=== PATIENT | male | born 1960 | race Caucasian/White ===

== ENCOUNTER 2019-05-03 10:51 | Emergency (ER) | payer SELFPAY ==
[2019-05-03] MEDS ORDERED: SODIUM CHLORIDE 0.9% 1000ML 1,000 ML IVS ONE (11:11)
[2019-05-03] MEDS ORDERED: SODIUM CHLORIDE 0.9% (FLUSH) 10 ML SYG IV PRN (11:11)
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
[2019-05-03] MEDS ORDERED: CEFEPIME 2 GM in SODIUM CHL 0.9% 50ML MIN-BAG+ 50 ML IVPB ONE (13:51)
[2019-05-03] MEDS ORDERED: VANCOMYCIN HCL INJ 1,000 MG in SODIUM CHLORIDE 0.9% 250ML 250 ML IVPB ONE (13:51)
[2019-05-03] MEDS ORDERED: CEFEPIME 2 GM VIAL ONE (13:53)
[2019-05-03] MEDS ORDERED: SODIUM CHLORIDE 0.9% 250ML 250 ML ONE (13:54)
[2019-05-03] MEDS ORDERED: SODIUM CHL 0.9% 50ML MIN-BAG+ 50 ML IVPB ONE (13:54)
[2019-05-03] MEDS ORDERED: VANCOMYCIN HCL INJ 1,000 MG VIAL IVPB ONE (13:54)
[2019-05-03 14:10] VITALS: BP 110/74; TEMP 98.3; O2SAT 99
== END 2019-05-03 14:15 | disposition short-term general hospital (02) ==
LOC: ER 10:51
DX: J96.90 Respiratory failure, unspecified, unspecified whether with hypoxia or hypercapnia (principal); J18.9 Pneumonia, unspecified organism; L89.159 Pressure ulcer of sacral region, unspecified stage; G82.50 Quadriplegia, unspecified; Z99.11 Dependence on respirator [ventilator] status; Z79.899 Other long term (current) drug therapy; Z88.8 Allergy status to other drugs, medicaments and biological substances
CPT/HCPCS: 36415; 36600; 71045; 80053; 81001; 82550; 82553; 82803; 82805; 83605; 84484; 85025; 85610; 85730; 87040; 93005; 94002; 94760; 94770; J0692; J3370; J7050

== ENCOUNTER 2019-06-04 12:53 | Emergency (ER) | payer SELFPAY ==
[2019-06-04] MEDS ORDERED: IPRATROPIUM/ALBUTEROL 3 ML VIAL NEB ONE (13:03)
[2019-06-04] MEDS ORDERED: ACETYLCYSTEIN 20 % 6,000 MG/30 ML VIAL ONE (13:04)
[2019-06-04] MEDS ORDERED: ACETYLCYSTEIN 20 % 6,000 MG/30 ML VIAL NEB ONE (13:06)
[2019-06-04] MEDS: IPRATROPIUM/ALBUTEROL 3 ML VIAL NEB ONE (13:10)
[2019-06-04] MEDS ORDERED: levoFLOXacin 500MG IV 100 ML IVPB ONE (13:42)
--- NOTE | 2019-06-04 13:46 | RAD ---
EXAM: Abdomen Series CLINICAL INDICATION: Shortness of breath COMPARISON: There is no previous study for comparison. FINDINGS: A single view of the chest reveals the heart size is mildly enlarged. A tracheostomy is noted. The pulmonary vessels are moderately congested. Multifocal infiltrates are seen in the bilateral lung bases right greater than left. There is a right-sided PICC line with its tip in the SVC. There is no evidence of free air under the hemidiaphragms. 2views of the abdomen were obtained. There is a nonspecific bowel gas pattern with no radiographic evidence of bowel obstruction. There are no dilated loops of small bowel. There is no evidence of pneumoperitoneum or pathologic calcifications. A G-tube is noted. IMPRESSION: No evidence of an acute intraabdominal process. Extensive pulmonary infiltrates suggesting pneumonia as well as findings suggesting CHF. 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
[2019-06-04] MEDS: levoFLOXacin 500MG IV 500 MG in PREMIX BAG 1 BAG IVPB ONE (13:58)
[2019-06-04] MEDS: methylPREDNISolone SODIUM SUC 125 MG/2 ML VIAL IV ONE (14:42)
[2019-06-04] MEDS ORDERED: VANCOMYCIN HCL INJ 1,000 MG VIAL IVPB ONE (15:10)
[2019-06-04] MEDS ORDERED: SODIUM CHLORIDE 0.9% 250ML 250 ML ONE (15:11)
[2019-06-04] MEDS ORDERED: VANCOMYCIN HCL INJ 500 MG VIAL ONE (15:11)
[2019-06-04] MEDS: SODIUM CHLORIDE 0.9% 1000ML 1,000 ML IVS ONE ×2 (15:15→16:55)
[2019-06-04] MEDS: VANCOMYCIN HCL INJ 1,000 MG, VANCOMYCIN HCL INJ 500 MG in SODIUM CHLORIDE 0.9% 250ML 25... IVPB ONE (15:17)
[2019-06-04] MEDS ORDERED: ENOXAPARIN SODIUM 80 MG/0.8 ML SYG SUBCU ONE (15:53)
--- NOTE | 2019-06-04 16:13 | ED.PDOC ---
History of Present Illness - General Chief Complaint: Respiratory Problem Stated Complaint: resp distress Time Seen by Provider: 06/04/19 12:54 Source: patient Exam Limitations: no limitations - History of Present Illness Initial Comments: the patient is a 59-year-old male presenting to the emergency room secondary to developing acute onset shortness of breath this morning. The patient is ventilator dependent from a cervical spine fracture and subdural hematoma. He is on DVT prophylaxis with Lovenox already. The patient was diaphoretic upon arrival. He was also hypoxic. The patient has coarse breath sounds bilaterally. He is a quadriplegic. The patient had apparently only been at the long-term care facility for about a day when he developed this issue. He had been at [facility] for pneumonia for the month prior. Distress did improve with increasing the FiO2 as well as with a DuoNeb treatment and Mucomyst treatment. Initial end-tidal readings are in the mid 60s. Timing/Duration: 1 hour Severity: severe Improving Factors: nothing Worsening Factors: nothing Allergies/Adverse Reactions: Allergies Lactase Allergy (Verified 05/03/19 11:14) Home Medications: Ambulatory Orders Acetaminophen [Tylenol] 650 mg PO Q6H PRN 05/03/19 Ascorbic Acid [Vitamin C 500 mg] 1 tab PO DAILY 05/03/19 Enoxaparin Sodium [Lovenox] 40 mg SUBCU QD 05/03/19 Fluoxetine HCl 20 mg PEG DAILY 05/03/19 Gabapentin 600 mg PEG TID 05/03/19 Hydroxyzine HCl 50 mg PO Q8H PRN 05/03/19 Hypromellose Ophth [place] [Isopto Tears] 1 drop BOTH_EYES Q4H PRN 05/03/19 Lidocaine 5% Patch [Lidoderm Patch] 1 ea TOP DAILY 05/03/19 Loperamide Cap [Imodium Cap] 2 mg PEG PRN 05/03/19 Methocarbamol 500 mg PEG Q8H PRN 05/03/19 Multiple Vitamins W/ Minerals [Multi Vitamin and Mineral] 1 tab PEG DAILY 05/03/19 QUEtiapine FUMARATE [SEROquel] 150 mg PEG BEDTIME 05/03/19 Quetiapine Fumarate 50 mg PEG BID PRN 05/03/19 Zinc Sulfate 220 mg PEG DAILY 05/03/19 cefTRIAXone SODIUM [Rocephin] 2 gm IV Q24HR 05/03/19 Review of Systems - Review of Systems Review of Systems: 06/04/19 16:13 review of systems is difficult secondary to the patient having difficulty with communications. He does seem confused at times as well. Constitutional: States: diaphoresis, malaise EENTM: States: no symptoms reported Respiratory: States: short of breath Cardiology: States: no symptoms reported Gastrointestinal/Abdominal: States: no symptoms reported Genitourinary: States: no symptoms reported Musculoskeletal: States: no symptoms reported Skin: States: no symptoms reported Neurological: States: see HPI Endocrine: States: excessive sweating All other Systems: No Change from Baseline Past Medical History (General) - Patient Medical History Hx Stroke: No Hx Cardiac Disorders: No Hx Congestive Heart Failure: No Hx Diabetes: No - Vaccination History Hx Influenza Vaccination: - unknown Hx Pneumococcal Vaccination: - unknown - Activities of Daily Living Care Home/Assisted Living (if applicable):: [facility] Family Medical History - Family History Father Family History: Unknown Living Status: Unknown Physical Exam - Physical Exam General Appearance: Alert, Obvious distress, Ill Appearing Eye Exam: bilateral normal Ears, Nose, Throat: hearing grossly normal, normal pharynx Neck: non-tender, supple, other - tracheostomy is in place. Respiratory: respiratory distress, accessory muscle use, rales, rhonchi, wheezing Cardiovascular/Chest: normal peripheral pulses, regular rate, rhythm, no edema Peripheral Pulses: radial,right: 2+, radial,left: 2+, dorsalis pedis,right: 2+, dorsalis pedis,left: 2+ Gastrointestinal/Abdominal: non tender, soft, other - surgical sites noted. Rectal Exam: deferred Extremity: non-tender, no pedal edema, no calf tenderness, normal capillary refill, other - normal passive range of motion. 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 He is ventilator dependent. He does have recurrent bilateral pneumonia with what appears to be early sepsis. He does have some borderline hypotension and is being given a liter of IV fluids as well as Solu-Medrol. White blood cell count was elevated to 27,000. He was already on Rocephin 2 g daily and is being given a dose of vancomycin and Levaquin here. He also received a DuoNeb and Mucomyst treatment here. Additionally the patient appears to have been in a significant respiratory acidosis at his current settings. PH was 7.28 and PaCO2 was 93, and bicarbonate was approximately 40. Initial end tidals were in the mid 60s. ventilator settings have been adjusted and end tidals are coming down to the high 30s. He is resting much more comfortably at this time. he does have a borderline initial troponin. This will need to be repeated at some point. EKG is reassuring, he does have mild J-point elevation in anterior leads. I see no worsening of this on repeat EKG. He does also have an elevated d-dimer which may be a chronic issue with this patient or may be related to recurrent pneumonia. He was already on Lovenox for DVT prophylaxis and has been given a dose of 1 mg/kg here 1 until his clinical picture is a little clear. The patient is being transferred back to [facility]. Acceptance is appreciated. 06/04/19 16:24 critical care time spent is 40 minutes excluding otherwise billable procedures. michaela choi [phone] - Results/Orders Results/Orders: initial and repeat EKGs showed borderline sinus tachycardia. Normal axis. LVH pattern. Borderline J-point elevation in anterior leads. Mildly prolonged QT interval. Chest x-ray showed bilateral pneumonia, worse on the right than the left. Questionable changes of cardiac strain. Laboratory Results - last 24 hr 06/04/19 06/04/19 06/04/19 13:15 13:15 13:15 WBC 27.8 H* RBC 3.85 L Hgb 10.7 L Hct 33.6 L MCV 87.3 MCH 27.8 MCHC 31.8 L RDW 19.2 H Plt Count 408 H MPV 9.0 Absolute Neuts (auto) Not Reportable Absolute Lymphs (auto) Not Reportable Absolute Monos (auto) Not Reportable Absolute Eos (auto) Not Reportable Neutrophils % Not Reportable Neutrophils % (Manual) 92.0 H Lymphocytes % Not Reportable Lymphocytes % (Manual) 3.0 Monocytes % Not Reportable Monocytes % (Manual) 1.0 Eosinophils % Not Reportable Basophils % Not Reportable Band Neutrophils 4.0 H Hypochromia 1+ Platelet Estimate Increased Anisocytosis 2+ Target Cells 1+ PT 12.3 H INR 1.24 H PTT (SP) 26.7 D-Dimer, Quantitative 2.70 H* pCO2 pO2 HCO3 ABG pH ABG O2 Saturation ABG Base Excess ABG Deoxyhemoglobin Oxyhemoglobin % Carboxyhemoglobin % Methemoglobin % Sat Calc Total Hemoglobin Sodium 144 Potassium 4.1 Chloride 96 L Carbon Dioxide 39 H Anion Gap 13.1 BUN 29 H Creatinine < 0.40 L BUN/Creatinine Ratio 72.0 H Random Glucose 133 H Serum Osmolality 294.6 Lactic Acid Calcium 9.2 Magnesium Total Bilirubin 0.2 AST 26 ALT 30 Alkaline Phosphatase 117 Creatine Kinase 35 L CK-MB (CK-2) 5.9 H* CK-MB (CK-2) % Not Reportable Troponin I 0.07 H* B-Natriuretic Peptide 291.0 H* Serum Total Protein 7.0 Albumin 2.2 L Globulin 4.8 H Albumin/Globulin Ratio 0.5 L Urine Color Urine Appearance Urine pH Ur Specific [place] Urine Protein Urine Glucose (UA) Urine Ketones Urine Blood Urine Nitrite Urine Bilirubin Urine Urobilinogen Ur Leukocyte Esterase Urine RBC Urine WBC Ur Epithelial Cells Other Crystals Urine Bacteria Hyaline Casts Urine Mucus 06/04/19 06/04/19 06/04/19 13:15 13:15 13:34 WBC RBC Hgb Hct MCV MCH MCHC RDW Plt Count MPV Absolute Neuts (auto) Absolute Lymphs (auto) Absolute Monos (auto) Absolute Eos (auto) Neutrophils % Neutrophils % (Manual) Lymphocytes % Lymphocytes % (Manual) Monocytes % Monocytes % (Manual) Eosinophils % Basophils % Band Neutrophils Hypochromia Platelet Estimate Anisocytosis Target Cells PT INR PTT (SP) D-Dimer, Quantitative pCO2 pO2 HCO3 ABG pH ABG O2 Saturation ABG Base Excess ABG Deoxyhemoglobin Oxyhemoglobin % Carboxyhemoglobin % Methemoglobin % Sat Calc Total Hemoglobin Sodium Potassium Chloride Carbon Dioxide Anion Gap BUN Creatinine BUN/Creatinine Ratio Random Glucose Serum Osmolality Lactic Acid 1.1 Calcium Magnesium 1.7 L Total Bilirubin AST ALT Alkaline Phosphatase Creatine Kinase CK-MB (CK-2) CK-MB (CK-2) % Troponin I B-Natriuretic Peptide Serum Total Protein Albumin Globulin Albumin/Globulin Ratio Urine Color Yellow Urine Appearance Clear Urine pH 6.5 Ur Specific [place] 1.015 Urine Protein 30 Urine Glucose (UA) Negative Urine Ketones Negative Urine Blood Small H Urine Nitrite Negative Urine Bilirubin Negative Urine Urobilinogen 0.2 Ur Leukocyte Esterase Negative Urine RBC 10-20 H Urine WBC 1-3 Ur Epithelial Cells 0-1 Other Crystals 1+ Urine Bacteria Rare Hyaline Casts 0-1 Urine Mucus Small 06/04/19 14:37 WBC RBC Hgb Hct MCV MCH MCHC RDW Plt Count MPV Absolute Neuts (auto) Absolute Lymphs (auto) Absolute Monos (auto) Absolute Eos (auto) Neutrophils % Neutrophils % (Manual) Lymphocytes % Lymphocytes % (Manual) Monocytes % Monocytes % (Manual) Eosinophils % Basophils % Band Neutrophils Hypochromia Platelet Estimate Anisocytosis Target Cells PT INR PTT (SP) D-Dimer, Quantitative pCO2 93 H* pO2 160 H* HCO3 41.8 ABG pH 7.280 L* ABG O2 Saturation 98.9 ABG Base Excess 11.6 ABG Deoxyhemoglobin 1.1 Oxyhemoglobin % 97.9 Carboxyhemoglobin % 0.9 Methemoglobin % Sat 0.1 Calc Total Hemoglobin 12.4 L Sodium Potassium Chloride Carbon Dioxide Anion Gap BUN Creatinine BUN/Creatinine Ratio Random Glucose Serum Osmolality Lactic Acid Calcium Magnesium Total Bilirubin AST ALT Alkaline Phosphatase Creatine Kinase CK-MB (CK-2) CK-MB (CK-2) % Troponin I B-Natriuretic Peptide Serum Total Protein Albumin Globulin Albumin/Globulin Ratio Urine Color Urine Appearance Urine pH Ur Specific [place] Urine Protein Urine Glucose (UA) Urine Ketones Urine Blood Urine Nitrite Urine Bilirubin Urine Urobilinogen Ur Leukocyte Esterase Urine RBC Urine WBC Ur Epithelial Cells Other Crystals Urine Bacteria Hyaline Casts Urine Mucus rapid flu is negative. Departure - Departure Clinical Impression: Respiratory distress, Ventilator associated pneumonia, Respiratory acidosis, Sepsis associated hypotension Disposition: Transfer to Hospital Condition: Serious Departure Forms: ED Discharge - Pt. Copy, Patient Portal Self Enrollment Referrals: CAMILO KENDRICK [Primary Care Provider] - 1-2 Weeks Home Medications: Ambulatory Orders Acetaminophen [Tylenol] 650 mg PO Q6H PRN 05/03/19 Ascorbic Acid [Vitamin C 500 mg] 1 tab PO DAILY 05/03/19 Enoxaparin Sodium [Lovenox] 40 mg SUBCU QD 05/03/19 Fluoxetine HCl 20 mg PEG DAILY 05/03/19 Gabapentin 600 mg PEG TID 05/03/19 Hydroxyzine HCl 50 mg PO Q8H PRN 05/03/19 Hypromellose Ophth [place] [Isopto Tears] 1 drop BOTH_EYES Q4H PRN 05/03/19 Lidocaine 5% Patch [Lidoderm Patch] 1 ea TOP DAILY 05/03/19 Loperamide Cap [Imodium Cap] 2 mg PEG PRN 05/03/19 Methocarbamol 500 mg PEG Q8H PRN 05/03/19 Multiple Vitamins W/ Minerals [Multi Vitamin and Mineral] 1 tab PEG DAILY 05/03/19 QUEtiapine FUMARATE [SEROquel] 150 mg PEG BEDTIME 05/03/19 Quetiapine Fumarate 50 mg PEG BID PRN 05/03/19 Zinc Sulfate 220 mg PEG DAILY 05/03/19 cefTRIAXone SODIUM [Rocephin] 2 gm IV Q24HR 05/03/19 Transfer to Outside Facility - Transfer Information Decision to Transfer Date: 06/04/19 Decision to Transfer Time: 16:24 Reason for Transfer: ICU Accepting Provider:: dr magalys ariza Accepting Facility: [facility]
[2019-06-04 17:59] VITALS: TEMP 98.5
[2019-06-04 18:50] VITALS: BP 124/77; O2SAT 98
== END 2019-06-04 18:15 | disposition short-term general hospital (02) ==
LOC: ER 12:53
DX: J95.851 Ventilator associated pneumonia (principal); A41.9 Sepsis, unspecified organism; R06.03 Acute respiratory distress; E87.2 Acidosis; I95.89 Other hypotension; G82.50 Quadriplegia, unspecified; Z99.11 Dependence on respirator [ventilator] status; Z87.01 Personal history of pneumonia (recurrent); Z79.899 Other long term (current) drug therapy; Z88.8 Allergy status to other drugs, medicaments and biological substances
CPT/HCPCS: 36415; 36600; 74019; 80053; 81001; 82550; 82553; 82803; 82805; 83605; 83735; 83880; 84484; 85025; 85379; 85610; 85730; 87040; 87502; 93005; 94002; 94640; 94770; J1650; J1956; J2930; J3370; J7030; J7050; J7620

== ENCOUNTER 2019-06-20 23:05 | Emergency (ER) | payer MEDICAID ==
[2019-06-20] MEDS ORDERED: IPRATROPIUM/ALBUTEROL 3 ML VIAL NEB ONE (23:19)
[2019-06-20] MEDS ORDERED: SODIUM CHLORIDE 0.9% 1000ML 1,000 ML IVS ONE (23:27)
[2019-06-20] MEDS ORDERED: methylPREDNISolone SODIUM SUC 125 MG/2 ML VIAL IV ONE (23:34)
--- NOTE | 2019-06-20 23:54 | RAD ---
EXAM: Single view chest. INDICATION: Respiratory distress. COMPARISON: Chest x-ray: 05/03/2019. FINDINGS: There is worsening diffuse interstitial and airspace opacities. The heart is normal in size. There is no pneumothorax or large pleural effusion. A tracheostomy tube is in satisfactory position. There is no acute fracture. IMPRESSION: Worsening diffuse interstitial and airspace opacities Electronically signed by: Darryl Guerra MD 06/20/2019 11:53 PM CARDIAC CATHETERIZATION TECHNICIAN
[2019-06-21] MEDS ORDERED: MEROPENEM 1 GM in SODIUM CHL 0.9% 50ML MIN-BAG+ 50 ML IVPB ONE (00:12)
[2019-06-21] MEDS ORDERED: MEROPENEM 1 GM VIAL IVPB ONE (00:18)
[2019-06-21] MEDS ORDERED: SODIUM CHL 0.9% 50ML MIN-BAG+ 50 ML IVPB ONE (00:18)
[2019-06-21] MEDS ORDERED: DOPamine PREMIX 250 ML IVPB ONE (00:42)
[2019-06-21] MEDS ORDERED: DOPamine PREMIX 400 MG in PREMIX BAG 1 BAG IVPB SCH (01:00)
[2019-06-21 01:11] VITALS: O2SAT 99
--- NOTE | 2019-06-21 02:12 | ED.PDOC ---
History of Present Illness - General Chief Complaint: Respiratory Problem Stated Complaint: respiratory distress Time Seen by Provider: 06/20/19 23:06 Source: EMS notes reviewed, correction records Exam Limitations: clinical condition - History of Present Illness Initial Comments: the patient's 59-year-old male presented to emergency room by EMS. The patient is resident of a long-term [facility] care facility. 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 The patient was recently at [facility] for bilateral pneumonia and was just transferred back to this long-term care facility here in town about 5 days ago. Apparently about 6 hours prior to arrival here at this hospital this evening, he started having increasing shortness of breath along with increasing oxygen requirement and dropping blood pressures. According to the correction his normal systolic blood pressures range in the 130s to 140s range. Blood pressures here were in the 70s to 80s on the systolic and then at one point dropped down into the 50s. The patient has coarse breath sounds bilaterally. end tidals were significantly elevated initially. Copious amounts of purulent sputum or suctioned. This allowed for for an improvement in end tidals. the patient is essentially obtunded. The last time I saw him about 3 weeks ago he was at least alert and oriented.he does have periods where he will wake up and look around but he does not try to communicate. The patient is initially clammy and diaphoretic. Blood and sputum cultures have been taken. Allergies/Adverse Reactions: Allergies Lactase Allergy (Verified 05/03/19 11:14) Home Medications: Ambulatory Orders Acetaminophen [Tylenol] 650 mg PO Q6H PRN 05/03/19 Ascorbic Acid [Vitamin C 500 mg] 1 tab PO DAILY 05/03/19 Enoxaparin Sodium [Lovenox] 40 mg SUBCU QD 05/03/19 Fluoxetine HCl 20 mg PEG DAILY 05/03/19 Gabapentin 600 mg PEG TID 05/03/19 Hydroxyzine HCl 50 mg PO Q8H PRN 05/03/19 Hypromellose Ophth [place] [Isopto Tears] 1 drop BOTH_EYES Q4H PRN 05/03/19 Lidocaine 5% Patch [Lidoderm Patch] 1 ea TOP DAILY 05/03/19 Loperamide Cap [Imodium Cap] 2 mg PEG PRN 05/03/19 Methocarbamol 500 mg PEG Q8H PRN 05/03/19 Multiple Vitamins W/ Minerals [Multi Vitamin and Mineral] 1 tab PEG DAILY 05/03/19 QUEtiapine FUMARATE [SEROquel] 150 mg PEG BEDTIME 05/03/19 Quetiapine Fumarate 50 mg PEG BID PRN 05/03/19 Zinc Sulfate 220 mg PEG DAILY 05/03/19 cefTRIAXone SODIUM [Rocephin] 2 gm IV Q24HR 05/03/19 Ascorbic Acid [Vitamin C] 500 mg PEG DAILY 06/21/19 Escitalopram Oxalate 10 mg PEG DAILY 06/21/19 Fluticasone Prop 0.05% Nasal [Flonase Nasal [place]] 50 mcg NA DAILY 06/21/19 Heparin Sodium (Porcine) [Heparin Sodium] 5,000 unit SC DAILY 06/21/19 Ibuprofen 800 mg PEG PRN 06/21/19 Losartan Potassium [Cozaar] 50 mg PEG DAILY 06/21/19 Polyethylene Glycol 1450 [Base A Polyethylene Glyco] 17 gm PEG DAILY 06/21/19 Scopolamine Patch 1.5MG [Transderm-Scop Patch] 1 ea TOP CARI-OTH-DAY 06/21/19 Sennosides [Senna] 8.6 mg PEG DAILY 06/21/19 Zinc Sulfate 220 mg PEG DAILY 06/21/19 Review of Systems - Review of Systems Review of Systems: 06/21/19 02:12 unable to obtain secondary to patient's condition. Unable to Obtain Due To: condition Past Medical History (General) - Patient Medical History Hx Stroke: No Hx of COPD: - vent dependent Hx Cardiac Disorders: No Hx Congestive Heart Failure: No Hx Diabetes: No - Vaccination History Hx Influenza Vaccination: - unknown Hx Pneumococcal Vaccination: - unknown - Activities of Daily Living Fdc/Assisted Living (if applicable):: [facility] Family Medical History - Family History Father Family History: Unknown Living Status: Unknown Physical Exam - Physical Exam General Appearance: Frail, Lethargic, Obvious distress, Ill Appearing Eye Exam: bilateral normal Ears, Nose, Throat: normal pharynx Neck: non-tender, supple, other - tracheostomy is in place. Respiratory: respiratory distress, rales, rhonchi Cardiovascular/Chest: regular rate, rhythm, no edema Peripheral Pulses: radial,right: 1+, radial,left: 1+ Gastrointestinal/Abdominal: non tender, soft, other - G-tube and colostomy on p lace. Rectal Exam: other - large deep at least stage III ulcer to the sacrum approximately 2-1/2 inches in diameter. Heme-negative stool. Back Exam: other - mild redness to bony prominences. Extremity: normal range of motion - passive, no pedal edema, slow capillary refill Neurologic: motor weakness - chronic, other - lethargic Skin Exam: diaphoresis, pallor Comments: Vital Signs - 24 hr 06/20/19 06/20/19 06/20/19 23:05 23:08 23:10 Temperature 98.5 F Pulse Rate Pulse Rate [ 20 L left] Respiratory 22 20 Rate Respiratory 20 Rate [Volume Control Data] Blood Pressure 99/54 [Right Arm] O2 Sat by Pulse 99 Oximetry 06/20/19 06/20/19 06/20/19 23:18 23:30 23:40 Temperature Pulse Rate 90 Pulse Rate [ 91 H left] Respiratory 22 23 Rate Respiratory 22 Rate [Volume Control Data] Blood Pressure [Right Arm] O2 Sat by Pulse 100 Oximetry 06/21/19 06/21/19 06/21/19 00:00 00:11 00:45 Temperature Pulse Rate 94 H Pulse Rate [ 96 H 94 H left] Respiratory 22 20 20 Rate Respiratory Rate [Volume Control Data] Blood Pressure 122/65 87/45 [Right Arm] O2 Sat by Pulse 100 100 99 Oximetry 06/21/19 06/21/19 06/21/19 01:00 01:14 01:25 Temperature Pulse Rate 99 H 99 H Pulse Rate [ 93 H 103 H 105 H left] Respiratory 20 20 20 Rate Respiratory Rate [Volume Control Data] Blood Pressure 83/41 92/46 96/55 [Right Arm] O2 Sat by Pulse 99 99 99 Oximetry 06/21/19 06/21/19 01:37 02:05 Temperature Pulse Rate 99 H 99 H Pulse Rate [ 106 H 96 H left] Respiratory 20 20 Rate Respiratory Rate [Volume Control Data] Blood Pressure 96/51 96/50 [Right Arm] O2 Sat by Pulse 99 99 Oximetry Progress - Progress Progress: 06/21/19 02:16 the patient is a 59-year-old male presenting secondary to rapid onset bilateral ventilator associated pneumonia. The patient is received a dose of meropenem already and will be started on vancomycin. The patient did arrive in septic shock. He has received around a liter and a half of normal saline along with the fluid with the antibiotics. He has also been placed on vancomycin. Blood pressures have significantly improved. Patient's clinical condition has significantly improved however the patient is still requiring 100% FiO2. Additionally the patient does have significant peak pressures, which in spite of ventilator adjustments I have not been able to significantly improve. he had significant CO2 retention at his last visit and it is likely he has had some over the last few days based on his bicarbonate level. He has largely compensated for however to this point. The patient received several breathing treatments. He received aggressive suctioning. He has received a dose of IV Solu-Medrol and again he has had blood and sputum cultures performed. He has tested negative for flu on the rapid test here. the patient has a moderately elevated d-dimer however that is not new looking at her records. Additionally he is on prophylactic heparin at the correction. The patient is being transferred for ICU care at [facility]. Dr. Monge's acceptance is greatly appreciated. Transferring for her level of care. the patient's daughter was contacted in [place]. The patient is apparently still active management. Critical care time spent on this patient excluding otherwise billable procedures is 55 minutes. - Results/Orders Results/Orders: two-view chest x-ray shows worsening interstitial infiltrates. EKG shows normal sinus rhythm at 96 beats a minute. Mild left atrial dilation. Poor R-wave progression. Possibly a very early mild right bundle branch block. Normal axis. No definitive ST segment or T-wave changes indicative of acute ischemia. Normal QT interval. Laboratory Tests 06/20/19 06/20/19 06/20/19 00:15 00:15 00:15 WBC 13.0 H RBC 2.82 L Hgb 8.1 L Hct 24.7 L MCV 87.5 MCH 28.7 MCHC 32.7 L RDW 22.2 H Plt Count 276 MPV 9.8 Absolute Neuts (auto) 11.90 H Absolute Lymphs (auto) 0.50 L Absolute Monos (auto) 0.50 Absolute Eos (auto) 0.00 Absolute Basos (auto) 0.00 Neutrophils % 91.8 H Lymphocytes % 3.9 L Monocytes % 4.0 Eosinophils % 0.1 L Basophils % 0.2 Normal RBC Morphology Plts rocky adequate PT 12.0 H INR 1.21 H PTT (SP) 27.8 D-Dimer, Quantitative 1190.00 H* Sodium 139 Potassium 3.6 Chloride 90 L Carbon Dioxide 43 H Anion Gap 9.6 L BUN 17 Creatinine < 0.40 L BUN/Creatinine Ratio 42.0 H Random Glucose 119 H Serum Osmolality 280.2 Lactic Acid Calcium 9.0 Total Bilirubin 0.3 AST 19 ALT 16 Alkaline Phosphatase 71 Creatine Kinase 45 CK-MB (CK-2) 5.5 H* CK-MB (CK-2) % Not Reportable Troponin I 0.04 B-Natriuretic Peptide 241.0 H* Serum Total Protein 6.7 Albumin 2.3 L Globulin 4.4 H Albumin/Globulin Ratio 0.5 L Urine Color Urine Appearance Urine pH Ur Specific [place] Urine Protein Urine Glucose (UA) Urine Ketones Urine Blood Urine Nitrite Urine Bilirubin Urine Urobilinogen Ur Leukocyte Esterase Urine RBC Urine WBC Ur Epithelial Cells Calcium Oxalate Crystal Amorphous Sediment Urine Bacteria Stool Occult Blood 06/20/19 06/21/19 06/21/19 00:15 00:20 00:32 WBC RBC Hgb Hct MCV MCH MCHC RDW Plt Count MPV Absolute Neuts (auto) Absolute Lymphs (auto) Absolute Monos (auto) Absolute Eos (auto) Absolute Basos (auto) Neutrophils % Lymphocytes % Monocytes % Eosinophils % Basophils % Normal RBC Morphology PT INR PTT (SP) D-Dimer, Quantitative Sodium Potassium Chloride Carbon Dioxide Anion Gap BUN Creatinine BUN/Creatinine Ratio Random Glucose Serum Osmolality Lactic Acid 0.9 Calcium Total Bilirubin AST ALT Alkaline Phosphatase Creatine Kinase CK-MB (CK-2) CK-MB (CK-2) % Troponin I B-Natriuretic Peptide Serum Total Protein Albumin Globulin Albumin/Globulin Ratio Urine Color Yellow Urine Appearance Sl cloudy Urine pH 7.0 Ur Specific [place] 1.020 Urine Protein Negative Urine Glucose (UA) Negative Urine Ketones Negative Urine Blood Trace-lysed H Urine Nitrite Negative Urine Bilirubin Negative Urine Urobilinogen 0.2 Ur Leukocyte Esterase Negative Urine RBC 0-1 Urine WBC 0 Ur Epithelial Cells 0 Calcium Oxalate Crystal 2+ Amorphous Sediment 2+ Urine Bacteria Rare Stool Occult Blood Negative Departure - Departure Clinical Impression: Ventilator-associated bacterial pneumonia, Septic shock, Encephalopathy acute Disposition: Transfer to Hospital Condition: Serious Departure Forms: ED Discharge - Pt. Copy, Patient Portal Self Enrollment Referrals: CAMILO KENDRICK [Primary Care Provider] - 1-2 Weeks Home Medications: Ambulatory Orders Acetaminophen [Tylenol] 650 mg PO Q6H PRN 05/03/19 Ascorbic Acid [Vitamin C 500 mg] 1 tab PO DAILY 05/03/19 Enoxaparin Sodium [Lovenox] 40 mg SUBCU QD 05/03/19 Fluoxetine HCl 20 mg PEG DAILY 05/03/19 Gabapentin 600 mg PEG TID 05/03/19 Hydroxyzine HCl 50 mg PO Q8H PRN 05/03/19 Hypromellose Ophth [place] [Isopto Tears] 1 drop BOTH_EYES Q4H PRN 05/03/19 Lidocaine 5% Patch [Lidoderm Patch] 1 ea TOP DAILY 05/03/19 Loperamide Cap [Imodium Cap] 2 mg PEG PRN 05/03/19 Methocarbamol 500 mg PEG Q8H PRN 05/03/19 Multiple Vitamins W/ Minerals [Multi Vitamin and Mineral] 1 tab PEG DAILY 05/03/19 QUEtiapine FUMARATE [SEROquel] 150 mg PEG BEDTIME 05/03/19 Quetiapine Fumarate 50 mg PEG BID PRN 05/03/19 Zinc Sulfate 220 mg PEG DAILY 05/03/19 cefTRIAXone SODIUM [Rocephin] 2 gm IV Q24HR 05/03/19 Ascorbic Acid [Vitamin C] 500 mg PEG DAILY 06/21/19 Escitalopram Oxalate 10 mg PEG DAILY 06/21/19 Fluticasone Prop 0.05% Nasal [Flonase Nasal [place]] 50 mcg NA DAILY 06/21/19 Heparin Sodium (Porcine) [Heparin Sodium] 5,000 unit SC DAILY 06/21/19 Ibuprofen 800 mg PEG PRN 06/21/19 Losartan Potassium [Cozaar] 50 mg PEG DAILY 06/21/19 Polyethylene Glycol 1450 [Base A Polyethylene Glyco] 17 gm PEG DAILY 06/21/19 Scopolamine Patch 1.5MG [Transderm-Scop Patch] 1 ea TOP CARI-OTH-DAY 06/21/19 Sennosides [Senna] 8.6 mg PEG DAILY 06/21/19 Zinc Sulfate 220 mg PEG DAILY 06/21/19 Transfer to Outside Facility - Transfer Information Decision to Transfer Date: 06/21/19 Decision to Transfer Time: 02:22 Reason for Transfer: ICU Accepting Provider:: dr monge Accepting Facility: [facility]
[2019-06-21 02:30] VITALS: TEMP 97.8
[2019-06-21] MEDS ORDERED: SODIUM CHLORIDE 0.9% 1000ML 1,000 ML IVS ONE (02:31)
[2019-06-21 02:40] VITALS: BP 96/52
== END 2019-06-21 02:50 | disposition short-term general hospital (02) ==
LOC: ER 23:05
DX: J95.851 Ventilator associated pneumonia (principal); B96.89 Other specified bacterial agents as the cause of diseases classified elsewhere; R65.21 Severe sepsis with septic shock; G93.40 Encephalopathy, unspecified; G82.50 Quadriplegia, unspecified; Y83.9 Surgical procedure, unspecified as the cause of abnormal reaction of the patient, or of later complication, without mention of misadventure at the time of the procedure; Z99.11 Dependence on respirator [ventilator] status; Z87.820 Personal history of traumatic brain injury; Z87.01 Personal history of pneumonia (recurrent); Z88.8 Allergy status to other drugs, medicaments and biological substances; Z79.899 Other long term (current) drug therapy; Z93.1 Gastrostomy status
CPT/HCPCS: 36600; 71045; 80053; 81001; 82270; 82550; 82553; 82803; 82805; 83605; 83880; 84484; 85025; 85379; 85610; 85730; 87040; 87502; 93005; 94002; 94640; 94770; J1265; J2185; J2930; J7030; J7050; J7620

== ENCOUNTER 2019-07-01 18:37 | Emergency (ER) | payer MEDICAID ==
[2019-07-01] MEDS ORDERED: SODIUM CHLORIDE 0.9% 1000ML 1,000 ML ONE (18:51)
[2019-07-01] MEDS ORDERED: SODIUM CHLORIDE 0.9% 1000ML 1,000 ML IVS ONE (18:53)
[2019-07-01 18:54] VITALS: TEMP 98
--- NOTE | 2019-07-01 19:39 | RAD ---
EXAM DESCRIPTION: Chest,1 View CLINICAL HISTORY: 59 years Male low oxygen saturation COMPARISON: June 20, 2019. TECHNIQUE: AP view of the chest was obtained. FINDINGS: Endotracheal tube is present with the tip seen 3.9 cm above the oswaldo. Cardiac size is within normal limits. Central vessels are obscured. Diffuse bilateral infiltrates with interstitial and airspace components again noted. The findings on the right are unchanged. Increasing airspace opacity left upper and midlung. No effusions bilaterally. No pneumothorax. IMPRESSION: Extensive bilateral infiltrates unchanged on the right and increased on the left. Electronically signed by: Kerry Bolivar MD 07/01/2019 7:37 PM CELLARS SUPERVISOR
--- NOTE | 2019-07-01 19:46 | ED.PDOC ---
History of Present Illness - General Chief Complaint: Respiratory Problem Stated Complaint: hypoxia Time Seen by Provider: 07/01/19 19:27 Source: RN notes reviewed, Vital Signs reviewed, EMS notes reviewed, correction records, old records Exam Limitations: other - Patient is event patient who is minimally responsive to answering questions. - History of Present Illness Initial Comments: Unable to obtain history from the patient. All of the history is from EMS. Patient arrived via an EMS transport from a hospital in [place] today back to the correction. He has been in the hospital for approximately 2 weeks due to a pneumonia. On arrival at the correction the patient was moved over to the bed and was hooked up to his vent and he began to desaturate. EMS took him off his vent, bagged him and his saturations came back up. This occurred 2 more times before they finally called EMS, transported here to the ED for further evaluation and treatment. Timing/Duration: 1 hour Severity: severe Improving Factors: other - Ambu bag Worsening Factors: other - Ventilator Associated Symptoms: shortness of breath Allergies/Adverse Reactions: Allergies Lactase Allergy (Verified 05/03/19 11:14) Home Medications: Ambulatory Orders Acetaminophen [Tylenol] 650 mg PO Q6H PRN 05/03/19 Ascorbic Acid [Vitamin C 500 mg] 1 tab PO DAILY 05/03/19 Enoxaparin Sodium [Lovenox] 40 mg SUBCU QD 05/03/19 Fluoxetine HCl 20 mg PEG DAILY 05/03/19 Gabapentin 600 mg PEG TID 05/03/19 Hydroxyzine HCl 50 mg PO Q8H PRN 05/03/19 Hypromellose Ophth [place] [Isopto Tears] 1 drop BOTH_EYES Q4H PRN 05/03/19 Lidocaine 5% Patch [Lidoderm Patch] 1 ea TOP DAILY 05/03/19 Loperamide Cap [Imodium Cap] 2 mg PEG PRN 05/03/19 Methocarbamol 500 mg PEG Q8H PRN 05/03/19 Multiple Vitamins W/ Minerals [Multi Vitamin and Mineral] 1 tab PEG DAILY 05/03/19 QUEtiapine FUMARATE [SEROquel] 150 mg PEG BEDTIME 05/03/19 Quetiapine Fumarate 50 mg PEG BID PRN 05/03/19 Zinc Sulfate 220 mg PEG DAILY 05/03/19 cefTRIAXone SODIUM [Rocephin] 2 gm IV Q24HR 05/03/19 Ascorbic Acid [Vitamin C] 500 mg PEG DAILY 06/21/19 Escitalopram Oxalate 10 mg PEG DAILY 06/21/19 Fluticasone Prop 0.05% Nasal [Flonase Nasal [place]] 50 mcg NA DAILY 06/21/19 Heparin Sodium (Porcine) [Heparin Sodium] 5,000 unit SC DAILY 06/21/19 Ibuprofen 800 mg PEG PRN 06/21/19 Losartan Potassium [Cozaar] 50 mg PEG DAILY 06/21/19 Polyethylene Glycol 1450 [Base A Polyethylene Glyco] 17 gm PEG DAILY 06/21/19 Scopolamine Patch 1.5MG [Transderm-Scop Patch] 1 ea TOP CARI-OTH-DAY 06/21/19 Sennosides [Senna] 8.6 mg PEG DAILY 06/21/19 Zinc Sulfate 220 mg PEG DAILY 06/21/19 Review of Systems - Review of Systems Review of Systems: 07/01/19 19:53 Unable to obtain a review of systems secondary to not communication of the patient due to his vent. Respiratory: States: see HPI Unable to Obtain Due To: clinical condition Past Medical History (General) - Patient Medical History Hx Stroke: No Hx of COPD: - vent dependent Hx Cardiac Disorders: No Hx Congestive Heart Failure: No Hx Diabetes: No - Vaccination History Hx Influenza Vaccination: - unknown Hx Pneumococcal Vaccination: - unknown Family Medical History - Family History Father Family History: Unknown Living Status: Unknown Physical Exam - Physical Exam General Appearance: Agitated, Emaciated, Frail, Lethargic, Ill Appearing Eye Exam: bilateral normal Ears, Nose, Throat: other - Patient with normal oropharynx except for poor dental hygiene and dry mucous membranes. Neck: supple, other - Patient with trach in place Respiratory: respiratory distress, decreased breath sounds, rales - Diffusely throughout, rhonchi - Diffusely throughout Cardiovascular/Chest: normal peripheral pulses, regular rate, rhythm, no murmur Peripheral Pulses: radial,right: 2+, radial,left: 2+ Gastrointestinal/Abdominal: normal bowel sounds, soft Extremity: no pedal edema Neurologic: other - Patient is nonresponsive except to blink his eyes. He is confused. Skin Exam: warm/dry, pallor Lymphatic: no adenopathy Progress - Progress Progress: Differential diagnosis: Pneumonia, sepsis, pneumothorax, hypercapnia among others 07/01/19 23:06 Patient with hypoxia and hypercapnia on arrival here. Lab work shows leukocytosis consistent with infection. Patient is hypernatremic as well as chest x-ray showing new infiltrates. Plan on admission to the hospital. - Results/Orders Results/Orders: 07/01/19 18:54 BLOOD CULTURE Stat Laboratory Results - last 24 hr 07/01/19 07/01/19 19:12 19:13 WBC 13.5 H RBC 2.81 L Hgb 8.1 L Hct 25.2 L MCV 89.7 MCH 28.9 MCHC 32.2 L RDW 21.6 H Plt Count 182 MPV 9.5 Absolute Neuts (auto) 12.30 H Absolute Lymphs (auto) 0.60 L Absolute Monos (auto) 0.40 Absolute Eos (auto) 0.10 Absolute Basos (auto) 0.00 Neutrophils % 91.6 H Lymphocytes % 4.5 L Monocytes % 2.7 Eosinophils % 0.8 L Basophils % 0.4 PT 11.1 H INR 1.12 PTT (SP) 28.3 pCO2 97 H* pO2 121 H* HCO3 41.5 ABG pH 7.289 L* ABG O2 Saturation 98.4 ABG Base Excess 20.0 ABG Deoxyhemoglobin 1.6 Oxyhemoglobin % 96.6 Carboxyhemoglobin % 0.8 Methemoglobin % Sat 1.0 Calc Total Hemoglobin 8.1 L Sodium 146 H Potassium 3.7 Chloride 96 L Carbon Dioxide 44 H Anion Gap 9.7 L BUN 34 H Creatinine < 0.40 L BUN/Creatinine Ratio 85.0 H Random Glucose 92 Serum Osmolality 297.8 H Calcium 9.0 Magnesium 1.9 Creatine Kinase 28 L CK-MB (CK-2) 5.0 H* CK-MB (CK-2) % 17.86 H Troponin I 0.04 EXAM DESCRIPTION: Chest,1 View CLINICAL HISTORY: 59 years Male low oxygen saturation COMPARISON: June 20, 2019. TECHNIQUE: AP view of the chest was obtained. FINDINGS: Endotracheal tube is present with the tip seen 3.9 cm above the oswaldo. Cardiac size is within normal limits. Central vessels are obscured. Diffuse bilateral infiltrates with interstitial and airspace components again noted. The findings on the right are unchanged. Increasing airspace opacity left upper and midlung. No effusions bilaterally. No pneumothorax. IMPRESSION: Extensive bilateral infiltrates unchanged on the right and increased on the left. Electronically signed by: Kerry Bolivar MD 07/01/2019 7:37 PM ENVIRONMENTAL ASSISTANT Departure - Departure Clinical Impression: Dehydration, Hypercapnia Pneumonia Qualifiers: Pneumonia type: due to unspecified organism Laterality: left Lung location: lower lobe of lung Qualified Code(s): J18.9 - Pneumonia, unspecified organism Time of Disposition: 23:12 Disposition: Discharge to Home or Self Care Condition: Fair Departure Forms: ED Discharge - Pt. Copy, Patient Portal Self Enrollment Referrals: CAMILO KENDRICK [Primary Care Provider] - 1-2 Weeks Home Medications: Ambulatory Orders Acetaminophen [Tylenol] 650 mg PO Q6H PRN 05/03/19 Ascorbic Acid [Vitamin C 500 mg] 1 tab PO DAILY 05/03/19 Enoxaparin Sodium [Lovenox] 40 mg SUBCU QD 05/03/19 Fluoxetine HCl 20 mg PEG DAILY 05/03/19 Gabapentin 600 mg PEG TID 05/03/19 Hydroxyzine HCl 50 mg PO Q8H PRN 05/03/19 Hypromellose Ophth [place] [Isopto Tears] 1 drop BOTH_EYES Q4H PRN 05/03/19 Lidocaine 5% Patch [Lidoderm Patch] 1 ea TOP DAILY 05/03/19 Loperamide Cap [Imodium Cap] 2 mg PEG PRN 05/03/19 Methocarbamol 500 mg PEG Q8H PRN 05/03/19 Multiple Vitamins W/ Minerals [Multi Vitamin and Mineral] 1 tab PEG DAILY 05/03/19 QUEtiapine FUMARATE [SEROquel] 150 mg PEG BEDTIME 05/03/19 Quetiapine Fumarate 50 mg PEG BID PRN 05/03/19 Zinc Sulfate 220 mg PEG DAILY 05/03/19 cefTRIAXone SODIUM [Rocephin] 2 gm IV Q24HR 05/03/19 Ascorbic Acid [Vitamin C] 500 mg PEG DAILY 06/21/19 Escitalopram Oxalate 10 mg PEG DAILY 06/21/19 Fluticasone Prop 0.05% Nasal [Flonase Nasal [place]] 50 mcg NA DAILY 06/21/19 Heparin Sodium (Porcine) [Heparin Sodium] 5,000 unit SC DAILY 06/21/19 Ibuprofen 800 mg PEG PRN 06/21/19 Losartan Potassium [Cozaar] 50 mg PEG DAILY 06/21/19 Polyethylene Glycol 1450 [Base A Polyethylene Glyco] 17 gm PEG DAILY 06/21/19 Scopolamine Patch 1.5MG [Transderm-Scop Patch] 1 ea TOP CARI-OTH-DAY 06/21/19 Sennosides [Senna] 8.6 mg PEG DAILY 06/21/19 Zinc Sulfate 220 mg PEG DAILY 06/21/19 Transfer to Outside Facility - Transfer Information Decision to Transfer Date: 07/01/19 Decision to Transfer Time: 22:15 Reason for Transfer: required specialist not available Accepting Facility: [facility]
[2019-07-01 22:05] VITALS: O2SAT 99
[2019-07-01] MEDS ORDERED: PIPERACILLIN/TAZOBACTAM 4.5 GM in SODIUM CHLORIDE 0.9% 100ML 100 ML IVPB ONE (23:10)
[2019-07-01] MEDS ORDERED: PIPERACILLIN/TAZOBACTAM 2.25 GM VIAL IVPB ONE (23:11)
[2019-07-01] MEDS ORDERED: SODIUM CHLORIDE 0.9% 100ML 100 ML IVPB ONE (23:11)
[2019-07-01 23:42] VITALS: BP 146/87
== END 2019-07-01 23:48 | disposition short-term general hospital (02) ==
LOC: ER 18:37
DX: J18.9 Pneumonia, unspecified organism (principal); E86.0 Dehydration; R06.09 Other forms of dyspnea; R09.02 Hypoxemia; Z99.11 Dependence on respirator [ventilator] status; Z79.899 Other long term (current) drug therapy; Z88.8 Allergy status to other drugs, medicaments and biological substances
CPT/HCPCS: 36600; 71045; 80048; 82550; 82553; 82803; 82805; 84484; 85025; 85610; 85730; 87040; 94002; J2543; J7030; J7050

== ENCOUNTER 2019-07-10 17:59 | Emergency (ER) | payer MEDICAID ==
--- NOTE | 2019-07-10 18:24 | RAD ---
EXAM DESCRIPTION: Chest,1 View CLINICAL HISTORY: 59 years Male, resp distress, vent pt COMPARISON: Previous study July 01, 2019 TECHNIQUE: AP portable chest. FINDINGS: Heart size is large with increased pulmonary vascularity. Extensive infiltrates in the lungs are noted. Consolidation is seen in the right lower lobe. Previous study showed left upper lobe consolidation which appears partially cleared. Extensive nodularity throughout the lungs. There may be bronchiectasis. Plate and screws in the C-spine. Central line from the left upper extremity is seen with tip at the SVC-right atrial junction. No complicating pneumothorax or pleural effusion. IMPRESSION: Pulmonary infiltrates improved compared to previous study. Electronically signed by: Cj Shah MD 07/10/2019 6:23 PM CERTIFIED NURSING ASSISTANT
[2019-07-10] MEDS ORDERED: SODIUM CHLORIDE 0.9% 1000ML 500 ML IVS ONE (20:45)
[2019-07-10] MEDS ORDERED: LEVALBUTEROL NEBS 1.25 MG/3 ML VIAL NEB ONE (21:00)
[2019-07-10] MEDS ORDERED: IPRATROPIUM/ALBUTEROL 3 ML VIAL NEB ONE (21:00)
[2019-07-10] MEDS ORDERED: IPRATROPIUM BROMIDE NEBS 0.5 MG/2.5 ML VIAL NEB ONE ×2 (21:07→21:08)
--- NOTE | 2019-07-10 22:59 | CT ---
EXAM DESCRIPTION: Soft Tissue Neck CLINICAL HISTORY: 59 years Male eval rec pna, hypoxia, r/o trach-esoph fistula COMPARISON: None. TECHNIQUE: Contiguous axial images obtained through the neck without IV contrast. Reformatted images obtained. This exam was performed according to our department optimization program which includes automated exposure control, adjustment of the mA and/or kv according to patient size and/or use of iterative reconstruction technique. FINDINGS: The study is slightly suboptimal from motion artifact and from streak artifact related to surgical hardware. There is a tracheostomy tube in place. The parotid glands, submandibular glands and thyroid gland appear unremarkable. Mild scarring/atelectasis or infiltrate in the upper lungs. The pharynx and larynx appear unremarkable. Scattered lymph nodes in the neck likely reactive. There is opacification of the bilateral mastoid air cells. There is also opacification of the left middle ear cavity. Atherosclerotic calcifications most pronounced in the distal segments of the internal carotid arteries. There are postsurgical changes in the bilateral mandible from previous fracture repair. There are changes of anterior fusion at C3-4 and at C5-6. There are multilevel degenerative changes throughout the cervical spine. Evaluation is suboptimal secondary to motion but there appears to be spinal stenosis at some levels most pronounced at C5-6. There is also foraminal stenosis at multiple levels. IMPRESSION: The study is suboptimal from motion artifact and streak artifact related to surgical hardware. There is opacification of the bilateral mastoid air cells and the left middle ear cavity. Postsurgical changes in the spine with spinal stenosis and foraminal stenosis. The evaluation of the spinal column is suboptimal secondary to motion artifact. No definite tracheoesophageal fistula is identified on the CT neck study. If there is continued concern, a fluoroscopic swallowing study may be helpful. Electronically signed by: Kelechi Arrington MD 07/10/2019 10:58 PM INFORMATION SYSTEMS PROFESSOR
--- NOTE | 2019-07-10 23:13 | CT ---
EXAM DESCRIPTION: CT CHEST WITHOUT CONTRAST CLINICAL HISTORY: Shortness of breath. Hypoxia. Recurrent pneumonia. COMPARISON: None Available. TECHNIQUE: Axial CT images of the chest without IV contrast obtained from the thoracic inlet through the diaphragm. Coronal and sagittal reformatted images available. FINDINGS: Chest: Thyroid:No abnormalities of the visualized thyroid. Great Vessels:Great vessels have normal anatomic configuration. Thoracic Aorta: Atherosclerotic calcification of a normal caliber thoracic aorta. Pulmonary arteries:The main pulmonary artery is not dilated. Heart: Coronary artery atherosclerosis. No cardiomegaly or significant pericardial effusion. Lymph Nodes:No enlarged mediastinal lymph nodes identified. Esophagus:No abnormalities of the esophagus identified Other: Small volume pneumomediastinum. Lungs: Confluent right lower lobe consolidation and bronchiectasis. Diffuse groundglass and patchy nodular opacities throughout the lungs bilaterally. Mild interlobular septal thickening. Pleura: Small right apical pneumothorax with bullous changes of the right lung base. No evidence of tension. Trachea/Airways: Tracheostomy in place. Mild dilation of the trachea. No definite tracheoesophageal fistula identified on this study. Bones: Degenerative change of the spine. Upper Abdomen:Limited images of the upper abdomen demonstrate no definite abnormalities of visualized portions of the liver, gallbladder, pancreas, spleen, adrenal glands, or kidneys. IMPRESSION: 1. Small volume pneumomediastinum. 2. Small right apical pneumothorax without evidence of tension. 3. Bullous changes of the right lung base with right lower lobe bronchiectasis. 4. Right lower lobe consolidation compatible with pneumonia. 5. Numerous tiny nodules as well as patchy airspace and groundglass opacities throughout the lungs bilaterally with interlobular septal thickening. Given the linear configuration of the nodular opacities atypical infectious etiology including tuberculosis and fungal infection should be considered. Additionally, in the appropriate clinical setting metastatic disease could produce a similar appearance. Urgent finding reported to Dr. Coto at 07/10/2019 11:08 PM [employer] This exam was performed according to our departmental dose-optimization program, which includes automated exposure control, adjustment of the mA and/or kV according to patient size and/or use of iterative reconstruction technique. Electronically signed by: Mauricio Duval 07/10/2019 11:12 PM [employer]
[2019-07-10] MEDS ORDERED: ASPIRIN TABLET 325 MG TAB GT ONE (23:39)
[2019-07-10] MEDS ORDERED: PIPERACILLIN/TAZOBACTAM 3.375 GM in SODIUM CHLORIDE 0.9% 100ML 100 ML IVPB ONE (23:39)
[2019-07-10] MEDS ORDERED: VANCOMYCIN HCL INJ 1,000 MG, VANCOMYCIN HCL INJ 500 MG in SODIUM CHLORIDE 0.9% 250ML 25... IVPB ONE (23:39)
[2019-07-10] MEDS ORDERED: PIPERACILLIN/TAZOBACTAM 3.375 GM in SODIUM CHLORIDE 0.9% 100ML 100 ML IVPB SCH (23:45)
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
[2019-07-11] MEDS ORDERED: PIPERACILLIN/TAZOBACTAM 3.375 GM VIAL IVPB ONE (00:14)
[2019-07-11] MEDS ORDERED: ENOXAPARIN SODIUM 80 MG/0.8 ML SYG SUBCU ONE (00:14)
[2019-07-11] MEDS ORDERED: VANCOMYCIN HCL INJ 1,000 MG VIAL IVPB ONE (00:15)
[2019-07-11] MEDS ORDERED: SODIUM CHLORIDE 0.9% 250ML 250 ML ONE (00:15)
[2019-07-11] MEDS ORDERED: VANCOMYCIN HCL INJ 500 MG VIAL ONE (00:15)
[2019-07-11] MEDS ORDERED: SODIUM CHLORIDE 0.9% 100ML 100 ML IVPB ONE (00:15)
[2019-07-11] MEDS ORDERED: IBUPROFEN 200 MG TAB ONE (01:19)
[2019-07-11] MEDS ORDERED: IBUPROFEN 200 MG TAB GT ONE (01:22)
[2019-07-11] MEDS ORDERED: SODIUM CHLORIDE 0.9% 1000ML 1,000 ML ONE (02:27)
[2019-07-11 03:45] VITALS: BP 123/77; TEMP 100.9; O2SAT 94
== END 2019-07-11 01:55 | disposition short-term general hospital (02) ==
LOC: ER 17:59
DX: J96.02 Acute respiratory failure with hypercapnia (principal); J96.01 Acute respiratory failure with hypoxia; J18.9 Pneumonia, unspecified organism; J98.2 Interstitial emphysema; I49.1 Atrial premature depolarization; L89.90 Pressure ulcer of unspecified site, unspecified stage; G82.50 Quadriplegia, unspecified; N31.9 Neuromuscular dysfunction of bladder, unspecified; R41.82 Altered mental status, unspecified; Z99.11 Dependence on respirator [ventilator] status; Z93.1 Gastrostomy status; Z79.899 Other long term (current) drug therapy; Z88.8 Allergy status to other drugs, medicaments and biological substances
CPT/HCPCS: 36415; 70490; 71045; 71250; 80053; 82550; 82553; 83605; 83880; 84484; 85025; 87070; 87502; 93005; 94002; 94003; 94640; 94770; J1650; J2543; J3370; J7030; J7050; J7614; J7644